=== PATIENT | female | born 1955 | race Caucasian/White ===

== ENCOUNTER 2021-07-24 17:10 | Inpatient (IN) | payer BC ==
[~2021-07-24] VITALS: Ht 167.6 cm; Wt 103.4 kg
[2021-07-24 17:45] LABS: HEMOGLOBIN 16.4 gm/dl (12.3-15.3); RED BLOOD COUNT 5.12 M/UL (4.00-5.10); WHITE BLOOD COUNT 14.6 K/UL (4.5-11.0)
[2021-07-24 18:25] LABS: BUN/CREATININE RATIO 16 (0-10)
[2021-07-25 03:39] LABS: HEMOGLOBIN 14.5 gm/dl (12.3-15.3); RED BLOOD COUNT 4.66 M/UL (4.00-5.10); WHITE BLOOD COUNT 13.6 K/UL (4.5-11.0)
[2021-07-25 04:24] LABS: BUN/CREATININE RATIO 15 (0-10)
[2021-07-25] MEDS ORDERED: BEET ROOT PO (08:55)
[2021-07-26 04:27] LABS: RED BLOOD COUNT 4.2 M/UL (4.00-5.10); WHITE BLOOD COUNT 14.3 K/UL (4.5-11.0)
[2021-07-26 04:52] LABS: BUN/CREATININE RATIO 21 (0-10)
== END 2021-07-26 13:14 | disposition short-term general hospital (02) | DRG 247 ==
LOC: ER1 17:10 → CCU 20:49
PROVIDERS: Emergency Medicine; ADMIT Internal Medicine Interventional Cardiology
PROC: 027135Z Dilation of Coronary Artery, Two Arteries with Two Drug-eluting Intraluminal Devices, Percutaneous Approach (ICD-10-PCS; principal; 2021-07-24)
PROC: 4A023N7 Measurement of Cardiac Sampling and Pressure, Left Heart, Percutaneous Approach (ICD-10-PCS; 2021-07-24)
PROC: B2111ZZ Fluoroscopy of Multiple Coronary Arteries using Low Osmolar Contrast (ICD-10-PCS; 2021-07-24)
PROC: 02703Z6 Dilation of Coronary Artery, One Artery, Bifurcation, Percutaneous Approach (ICD-10-PCS; 2021-07-26)
DX: I21.19 ST elevation (STEMI) myocardial infarction involving other coronary artery of inferior wall (principal); I16.1 Hypertensive emergency; I10 Essential (primary) hypertension; E78.5 Hyperlipidemia, unspecified; I25.10 Atherosclerotic heart disease of native coronary artery without angina pectoris; Z20.822 Contact with and (suspected) exposure to COVID-19; E66.9 Obesity, unspecified; Z90.49 Acquired absence of other specified parts of digestive tract; Z98.890 Other specified postprocedural states; Z80.9 Family history of malignant neoplasm, unspecified; Z82.49 Family history of ischemic heart disease and other diseases of the circulatory system; Z80.51 Family history of malignant neoplasm of kidney; I95.2 Hypotension due to drugs; T50.995A Adverse effect of other drugs, medicaments and biological substances, initial encounter
CPT/HCPCS: ECHO; 36415; 71045; 80048; 80053; 82550; 82553; 83735; 84484; 85025; 85347; 85610; 85730; 92920; 92978; 93005; 93306; 96374; 96375; 99152; 99153; 99285; C1725; C1753; C1757; C1769; C1874; C1887; C1894; C9600; J0360; J0461; J1170; J1265; J1644; J2250; J2270; J2370; J2405; J3010; J3246; J7030; J7040; Q9965; Q9967; U0002

== ENCOUNTER 2021-09-05 15:54 | Emergency (ER) | payer BC ==
[~2021-09-05 15:54] MED LIST: BEET ROOT PO
[2021-09-05 17:23] LABS: HEMOGLOBIN 8.3 gm/dl (12.3-15.3); RED BLOOD COUNT 2.8 M/UL (4.00-5.10); WHITE BLOOD COUNT 9.4 K/UL (4.5-11.0)
[2021-09-05 17:51] LABS: BUN/CREATININE RATIO 13 (0-10)
== END 2021-09-05 18:56 | disposition home or self-care (01) ==
LOC: ER1 15:54
PROVIDERS: Family Medicine
DX: D64.9 Anemia, unspecified (principal); I25.10 Atherosclerotic heart disease of native coronary artery without angina pectoris; Z79.01 Long term (current) use of anticoagulants; Z86.718 Personal history of other venous thrombosis and embolism
CPT/HCPCS: 80053; 85025; 85610; 86850; 86900; 86901; 93005; 99284

== ENCOUNTER 2021-10-03 13:51 | Emergency (ER) | payer BC ==
[~2021-10-03] VITALS: Ht 167.6 cm; Wt 95.3 kg
[2021-10-03 21:08] LABS: HEMOGLOBIN 11.5 gm/dl (12.3-15.3); RED BLOOD COUNT 4.17 M/UL (4.00-5.10); WHITE BLOOD COUNT 9.8 K/UL (4.5-11.0)
[2021-10-03 21:31] LABS: BUN/CREATININE RATIO 10 (0-10)
[2021-10-04 04:21] LABS: HEMOGLOBIN 10.2 gm/dl (12.3-15.3)
[2021-10-04 04:29] LABS: RED BLOOD COUNT 3.67 M/UL (4.00-5.10)
[2021-10-04 04:50] LABS: BUN/CREATININE RATIO 9 (0-10)
[2021-10-04] MEDS ORDERED: ELIQUIS5 MG PO (10:39)
[2021-10-04] MEDS ORDERED: ASPIRIN EC81 MG PO (10:39)
[2021-10-04] MEDS ORDERED: ATORVASTATIN CA20 MG PO (10:40)
[2021-10-04] MEDS ORDERED: METOPROLOL TART25 MG PO (10:40)
[2021-10-04] MEDS ORDERED: FERROUS SULFAT324 MG PO (10:40)
[2021-10-04] MEDS ORDERED: CEPHALEXIN500 MG PO (10:41)
[2021-10-04] MEDS ORDERED: PROTONIX 40 MG40 M1 PO (10:41)
[2021-10-04] MEDS ORDERED: ASCORBIC ACID500 MG PO (10:42)
[2021-10-04] MEDS ORDERED: FUROSEMIDE20 MG PO (10:42)
[2021-10-04] MEDS ORDERED: POTASSIUM CHLO10 ME2 PO (10:42)
[2021-10-04] MEDS ORDERED: MAGNESIUM OXID400 M1 PO (10:43)
[2021-10-04] MEDS ORDERED: IPRAT-ALBUT 0.5-3 ML INH (10:44)
[2021-10-04] MEDS ORDERED: COMBIVENT RESPIM4 GM INH (10:45)
[2021-10-04] MEDS ORDERED: FIBER625 MG PO (10:48)
[2021-10-04] MEDS ORDERED: CEPHALEXIN500 M1 PO (14:00)
[2021-10-04] MEDS ORDERED: BACTRIM 400-801 EACH PO (14:00)
== END 2021-10-04 15:00 | disposition home or self-care (01) ==
LOC: ER1 13:51
PROVIDERS: Internal Medicine; Physician Assistant
DX: T81.31XA Disruption of external operation (surgical) wound, not elsewhere classified, initial encounter (principal); I25.10 Atherosclerotic heart disease of native coronary artery without angina pectoris; I11.9 Hypertensive heart disease without heart failure; I82.402 Acute embolism and thrombosis of unspecified deep veins of left lower extremity; E78.5 Hyperlipidemia, unspecified; E66.9 Obesity, unspecified; Z79.01 Long term (current) use of anticoagulants; Z95.1 Presence of aortocoronary bypass graft; Z90.49 Acquired absence of other specified parts of digestive tract; Z20.822 Contact with and (suspected) exposure to COVID-19
CPT/HCPCS: 80053; 83605; 83735; 83880; 84100; 85025; 87040; 96365; 96366; 96368; 99284; J2543; J3370; J7030; J7070; U0002

== ENCOUNTER 2021-10-28 19:42 | Emergency (ER) | payer BC ==
[~2021-10-28 19:42] MED LIST changes: +ASCORBIC ACID500 MG PO; +ASPIRIN EC81 MG PO; +ATORVASTATIN CA20 MG PO; +BACTRIM 400-801 EACH PO; +CEPHALEXIN500 M1 PO; +CEPHALEXIN500 MG PO; +COMBIVENT RESPIM4 GM INH; +ELIQUIS5 MG PO; +FERROUS SULFAT324 MG PO; +FIBER625 MG PO; +FUROSEMIDE20 MG PO; +IPRAT-ALBUT 0.5-3 ML INH; +MAGNESIUM OXID400 M1 PO; +METOPROLOL TART25 MG PO; +POTASSIUM CHLO10 ME2 PO; +PROTONIX 40 MG40 M1 PO
== END 2021-10-28 21:25 | disposition home or self-care (01) ==
LOC: ER1 19:42
DX: T81.49XA Infection following a procedure, other surgical site, initial encounter (principal); Z86.79 Personal history of other diseases of the circulatory system; I11.9 Hypertensive heart disease without heart failure; Z86.73 Personal history of transient ischemic attack (TIA), and cerebral infarction without residual deficits; Z90.49 Acquired absence of other specified parts of digestive tract; Z95.1 Presence of aortocoronary bypass graft
CPT/HCPCS: 99283